=== PATIENT | female | born 2000 | race Caucasian/White ===

== ENCOUNTER 2023-08-11 17:56 | Emergency (ER) | payer OTHER ==
[~2023-08-11] VITALS: Ht 162.6 cm; Wt 75.7 kg
[2023-08-11 17:57] VITALS: BP 136/65; TEMP 98; O2SAT 97
[2023-08-11] MEDS ORDERED: BOOSTRIX VACCINE (TETANUS/DIPHTH/ACEL. PERTUSSIS) 0.5ML SYR IM ONE (19:00)
[2023-08-11] MEDS ORDERED: DERMABOND TOPICAL SKIN ADHESIVE TOP ONE (19:00)
== END 2023-08-11 20:05 | disposition home or self-care (01) ==
LOC: M ED 17:56
DX: S61.211A Laceration without foreign body of left index finger without damage to nail, initial encounter (principal); W26.0XXA Contact with knife, initial encounter; Y92.009 Unspecified place in unspecified non-institutional (private) residence as the place of occurrence of the external cause; Y93.G3 Activity, cooking and baking; Y99.9 Unspecified external cause status